=== PATIENT | female | born 1990 | race American Indian/Alaskan Native ===

== ENCOUNTER 2019-12-07 09:14 | Inpatient (IN) | payer OTHER ==
[2019-12-07] MEDS ORDERED: Tranexamic Acid 1,000 MG in Sodium Chloride 0.9% 100 ML IV PRN (09:49)
[2019-12-07] MEDS ORDERED: Misoprostol 200 MCG Tab PO PRN (09:49)
[2019-12-07] MEDS ORDERED: Sodium Chloride 0.9% 10 ML SDV IV PRN (09:49)
[2019-12-07] MEDS ORDERED: Lidocaine 1% 50 ML MDV INJECT PRN (09:49)
[2019-12-07] MEDS ORDERED: Sodium Chloride 0.9% 10 ML Syringe FLUSH PRN (09:49)
[2019-12-07] MEDS ORDERED: Butorphanol 1 MG/ML SDV IVPUSH PRN (09:49)
[2019-12-07] MEDS ORDERED: Sodium Chloride 0.9% 2.5 ML Syringe FLUSH PRN (09:49)
[2019-12-07] MEDS ORDERED: Carboprost Tromethamine 250 MCG/1 ML Amp IM PRN (09:49)
[2019-12-07] MEDS ORDERED: Methylergonovine 0.2 MG/1 ML Amp IM PRN (09:49)
[2019-12-07] MEDS ORDERED: Nalbuphine 10 MG/1 ML Vial IVPUSH PRN (09:49)
[2019-12-07] MEDS ORDERED: Water For Irrigation,Sterile 1,000 ML Container IRR PRN (09:49)
[2019-12-07] MEDS ORDERED: Oxytocin/0.9 % Sodium Chloride 30 UNIT/500 ML BAG IV SCH (10:00)
--- NOTE | 2019-12-07 10:06 | PCM.LDHP ---
L&D History of Present Illness - General Date of Service: 12/07/19 Admit Problem/Dx: Admission Diagnosis/Problem Admission Diagnosis/Problem 12/07/19 09:52 @ 40 weeks presenting to L&D with complaints of contractions starting 0300 and getting progressively worse at 0500. Reports increased mucus-like discharge and pelvic pain. Valentin approximately every 5-7 minutes. SVE per nurse report: 5cm/90%/-1, soft/stretchy, midposition. Vertex presentation confirmed by leopolds and vaginal exam. GBS negative, Rubella immune, O+. Source of Information: Patient History Limitations: Reports: No Limitations - Related Data Allergies/Adverse Reactions: Allergies Allergy/AdvReac Type Severity Reaction Status Date / Time No Known Allergies Allergy Verified 09/15/17 03:24 Home Medications: Home Meds Vit #76/Iron,Carb/Fa [Pnv 29-1 Tablet] 1 each PO DAILY 09/18/17 [History] Past Medical History - Past Health History Medical/Surgical History: Denies Medical/Surgical History HEENT History: Reports: Other (See Below) Other HEENT History: needs glassess Cardiovascular History: Reports: None Respiratory History: Reports: None Gastrointestinal History: Reports: None Genitourinary History: Reports: None 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: - Past Surgical History Cardiovascular Surgical History: Reports: None Female Surgical History: Reports: None Social & Family History - Family History HEENT: Reports: Cataract Other HEENT Family History: grandfather OBGYN: Reports: Other Musculoskeletal Family History: grandparetns arthritis Hematologic: Reports: Anemia - Caffeine Use Caffeine Use: Reports: Coffee H&P Review of Systems - Review of Systems: Review Of Systems: See Below General: Reports: No Symptoms HEENT: Reports: No Symptoms Pulmonary: Reports: No Symptoms Cardiovascular: Reports: No Symptoms Gastrointestinal: Reports: No Symptoms Genitourinary: Reports: No Symptoms Musculoskeletal: Reports: No Symptoms Skin: Reports: No Symptoms Psychiatric: Reports: No Symptoms Neurological: Reports: No Symptoms Hematologic/Lymphatic: Reports: No Symptoms Immunologic: Reports: No Symptoms L&D Exam - Exam Exam: See Below - Vital Signs Weight: 154 lb - OB Specific Contraction Intensity: Moderate Movement: Active Heart Tones: Present Heart Rate (FHR) Variability: Moderate (6-25 bmp) Presentation: Vertex - Monroe Score Monroe Score Cervix Position: Midposition Monroe Score Consistency: Soft Monroe Score Effacement: >80% Monroe Score Dilation: > 5 cm Monroe Score 's Station: -1 ,0 Monroe Score Total: 11 - Exam General: Alert, Oriented, Cooperative Rectal Exam: Deferred Genitourinary: Deferred Psychiatric: Alert, Normal Affect, Normal Mood - Problem List (1) Supervision of normal IUP (intrauterine ) in multigravida SNOMED Code(s): 443743288, 678959314, 990598083 ICD Code: Z34.80 - ENCOUNTER FOR SUPRVSN OF NORMAL , UNSP TRIMESTER Status: Acute Priority: High Current Visit: Yes Qualifiers: Trimester: third trimester Qualified Code(s): Z34.83 - Encounter for supervision of other normal , third trimester Problem List Initiated/Reviewed/Updated: Yes Assessment/Plan Comment:: Admit A: @ 40 weeks presenting to L&D with complaints of contractions starting 0300 and getting progressively worse at 0500. Reports increased mucus-like discharge and pelvic pain. Valentin approximately every 5-7 minutes. SVE per nurse report: 5cm/90%/-1, soft/stretchy, midposition. Vertex presentation confirmed by leopolds and vaginal exam. GBS negative, Rubella immune, O+. P: Anticipate ; epidural PRN; Dr. Nunez updated.
[2019-12-07] MEDS: Lactated Ringers 1,000 ML IV SCH ×2 (12:15→12:49)
[2019-12-07] MEDS ORDERED: Ropivacaine HCl/PF 100 ML ONE (12:16)
[2019-12-07] MEDS ORDERED: fentaNYL 100 MCG/2 ML SDV ONE (12:16)
--- NOTE | 2019-12-07 12:41 | PCM.PREANE ---
Preanesthetic Assessment - Anesthesia/Transfusion/Family Hx Anesthesia History: Prior Anesthesia Without Reaction Family History of Anesthesia Reaction: No Transfusion History: No Prior Transfusion(s) - Physical Assessment NPO Status Date: 12/07/19 NPO Status Time: 07:00 Height: 1.52 m Weight: 69.853 kg ASA Class: 2 - Lab Values: Laboratory Last Values WBC 14.07 K/uL (4.0-11.0) H 12/07/19 10:10 RBC 4.36 M/uL (4.30-5.90) 12/07/19 10:10 Hgb 13.8 g/dL (12.0-16.0) 12/07/19 10:10 Hct 41.4 % (36.0-46.0) 12/07/19 10:10 MCV 95.0 fL (80.0-98.0) 12/07/19 10:10 MCH 31.7 pg (27.0-32.0) 12/07/19 10:10 MCHC 33.3 g/dL (31.0-37.0) 12/07/19 10:10 RDW Std Deviation 47.0 fl (28.0-62.0) 12/07/19 10:10 RDW Coeff of Sandra 14 % (11.0-15.0) 12/07/19 10:10 Plt Count 317 K/uL (150-400) 12/07/19 10:10 MPV 10.00 fL (7.40-12.00) 12/07/19 10:10 Nucleated RBC % 0.0 /100WBC 12/07/19 10:10 Nucleated RBCs # 0 K/uL 12/07/19 10:10 SARS-CoV-2 RNA (LILLIE) NEGATIVE (NEGATIVE) 12/07/19 10:10 Blood Type O POSITIVE 12/07/19 10:10 Antibody Screen NEGATIVE 12/07/19 10:10 - Allergies Allergies/Adverse Reactions: Allergies Allergy/AdvReac Type Severity Reaction Status Date / Time No Known Allergies Allergy Verified 09/15/17 03:24 - Acknowledgements Anesthesia Type Planned: Epidural Pt an Appropriate Candidate for the Planned Anesthesia: Yes Alternatives and Risks of Anesthesia Discussed w Pt/Guardian: Yes Pt/Guardian Understands and Agrees with Anesthesia Plan: Yes PreAnesthesia Questionnaire - Past Health History Medical/Surgical History: Denies Medical/Surgical History HEENT History: Reports: Other (See Below) Other HEENT History: needs glassess Cardiovascular History: Reports: None Respiratory History: Reports: None Gastrointestinal History: Reports: None Genitourinary History: Reports: None [employer]LL[employer] 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: - Past Surgical History Cardiovascular Surgical History: Reports: None Female Surgical History: Reports: None - SUBSTANCE USE Tobacco Use Status *Q: Never Tobacco User Second Hand Smoke Exposure: No - HOME MEDS Home Medications: Home Meds Vit #76/Iron,Carb/Fa [Pnv 29-1 Tablet] 1 each PO DAILY 09/18/17 [History] - CURRENT (IN HOUSE) MEDS Current Meds: Current Medications Butorphanol Tartrate (Stadol) 1 mg IVPUSH Q1H PRN PRN Reason: Pain Carboprost Tromethamine (Hemabate Ds) 250 mcg IM ASDIRECTED PRN PRN Reason: Post Hemorrhage Oxytocin/Sodium Chloride (Oxytocin 30 Unit/500 Ml-Ns) 30 unit in 500 mls @ 500 mls/hr IV TITRATE [facility] Tranexamic Acid 1,000 mg/ (Sodium Chloride) 110 mls @ 660 mls/hr IV ONETIME PRN PRN Reason: Bleeding Lactated Ringer's (Ringers, Lactated) 1,000 mls @ 150 mls/hr IV ASDIRECTED [facility] Influenza Virus Vaccine (Pharmacy To Dose - Influenza Vaccine) 1 each IM ONETIME ONE Stop: 12/08/19 11:45 Influenza Virus Vaccine (Fluzone Quad [id number] Syringe) 60 mcg IM .ONCE ONE Stop: 12/09/19 17:01 Lidocaine HCl (Xylocaine 1%) 50 ml INJECT ONETIME PRN PRN Reason: Laceration repair Methylergonovine Maleate (Methergine) 0.2 mg IM ASDIRECTED PRN PRN Reason: Post Hemorrhage Misoprostol (Cytotec) 200 mcg PO ONETIME PRN PRN Reason: Post Hemorrhage Nalbuphine HCl (Nubain) 10 mg IVPUSH Q1H PRN PRN Reason: Pain (severe 7-10) Sodium Chloride (Saline Flush) 10 ml FLUSH ASDIRECTED PRN PRN Reason: Keep Vein Open Sodium Chloride (Saline Flush) 2.5 ml FLUSH ASDIRECTED PRN PRN Reason: Keep Vein Open Sodium Chloride (Normal Saline) 10 ml IV ASDIRECTED PRN PRN Reason: IV Use Sterile Water (Sterile Water For Irrigation) 1,000 ml IRR ASDIRECTED PRN PRN Reason: delivery Discontinued Medications Fentanyl (Sublimaze) Confirm Administered Dose 100 mcg .ROUTE .Pops-MED ONE Stop: 12/07/19 12:17 Ropivacaine (Naropin 0.2%) Confirm Administered Dose 100 mls @ as directed .ROUTE .[employer] ONE Stop: 12/07/19 12:17
--- NOTE | 2019-12-07 12:44 | PCM.PRNOTE ---
- Free Text/Narrative Note: Anes Note Patient requests epidural for L&D. Sitting position level L3-L4 midline approach. Sterle technique. Chloraprep scrub to lumbar area. Sterile fenestrated drape applied. Epidural space easily achieved single attempt with ease using CHRISTEL technique. CHRISTEL at 3 cm. Cath threaded 5 cm with ease. Cath secured at skin at 9 cm using sterile clear adhesive dressing. Test 1233 3 cc 1.5% lido with epi negaive. 1236 LOad 10 cc 0.2% ropiv with 1 mcg cc fentanyl in slow divided doses. 1240 Pump started with 90 cc same solution. Rate is 8 cc hr with 6 cc q 20 min prn bolus. Renetta well. Time with patient [id number] Reno Nur CRNA
--- NOTE | 2019-12-07 17:25 | PCM.DEL ---
L & D Note - General Info Date of Service: 12/07/19 Mother's Due Date: 12/07/19 - Delivery Note Labor: Spontaneous Delivery Outcome: Livebirth Infant Delivery Method: Spontaneous Vaginal Delivery-Single Presentation: Vertex Nuchal Cord: None Anesthesia Type: Epidural Episiotomy Type: None Laceration: None Placenta: Intact, Spontaneous Cord: 3 Vessels Estimated Blood Loss: 150 Score 1 min: 8 Score 5 min: 9 Second Stage Interventions: Reports: Second Nurse Assessed Progress of Descent, Second Nurse Reviewed Contraction Pattern, Second Nurse Reviewed Heart Tones, Encouragement Given, Pushing Effectively, Pushing, Pulls Own Legs Back Delivery Comments (Free Text/Narrative):: viable female; epidural for pain relief; head delivered with good pushing; shoulders and body followed easily after with mom in Jayden position; baby to mom's abdomen [id number] for assessment; APGARs 8/9; cord doubly clamped, cut by FOB after cessation of pulsing; placenta delivered grossly intact, triana, 3VC; EBL: 150 mL; perineum intact; pitocin to IVF; mom and baby left in stable condition with nurse at bedside for assessment; baby weight: 7 lb 15 oz (3600 grams) - General Info Date of Service: 12/07/19 Admission Dx/Problem (Free Text): Admission Diagnosis/Problem Admission Diagnosis/Problem 12/07/19 09:52 @ 40 weeks presenting to L&D with complaints of contractions starting 0300 and getting progressively worse at 0500. Reports increased mucus-like discharge and pelvic pain. Valentin approximately every 5-7 minutes. SVE per nurse r eport: 5cm/90%/-1, soft/stretchy, midposition. Vertex presentation confirmed by leopolds and vaginal exam. GBS negative, Rubella immune, O+. Functional Status: Reports: Pain Controlled - Review of Systems General: Reports: No Symptoms HEENT: Reports: No Symptoms Pulmonary: Reports: No Symptoms Cardiovascular: Reports: No Symptoms Gastrointestinal: Reports: No Symptoms Genitourinary: Reports: No Symptoms Musculoskeletal: Reports: No Symptoms Skin: Reports: No Symptoms Neurological: Reports: No Symptoms Psychiatric: Reports: No Symptoms - Patient Data Weight - Most Recent: 154 lb Lab Results Last 24 Hours: Laboratory Results - last 24 hr 12/07/19 12/07/19 12/07/19 Range/Units 10:10 10:10 10:10 WBC 14.07 H (4.0-11.0) K/uL RBC 4.36 (4.30-5.90) M/uL Hgb 13.8 (12.0-16.0) g/dL Hct 41.4 (36.0-46.0) % MCV 95.0 (80.0-98.0) fL MCH 31.7 (27.0-32.0) pg MCHC 33.3 (31.0-37.0) g/dL RDW Std Deviation 47.0 (28.0-62.0) fl RDW Coeff of Sandra 14 (11.0-15.0) % Plt Count 317 (150-400) K/uL MPV 10.00 (7.40-12.00) fL Nucleated RBC % 0.0 /100WBC Nucleated RBCs # 0 K/uL SARS-CoV-2 RNA (LILLIE) NEGATIVE (NEGATIVE) Blood Type O POSITIVE Antibody Screen NEGATIVE Med Orders - Current: Current Medications Butorphanol Tartrate (Stadol) 1 mg IVPUSH Q1H PRN PRN Reason: Pain Carboprost Tromethamine (Hemabate Ds) 250 mcg IM ASDIRECTED PRN PRN Reason: Post Hemorrhage Oxytocin/Sodium Chloride (Oxytocin 30 Unit/500 Ml-Ns) 30 unit in 500 mls @ 500 mls/hr IV TITRATE [facility] Tranexamic Acid 1,000 mg/ (Sodium Chloride) 110 mls @ 660 mls/hr IV ONETIME PRN PRN Reason: Bleeding Lactated Ringer's (Ringers, Lactated) 1,000 mls @ 150 mls/hr IV ASDIRECTED [facility] Last Admin: 12/07/19 12:49 Dose: 1,000 mls/hr Documented by: Influenza Virus Vaccine (Pharmacy To Dose - Influenza Vaccine) 1 each IM ONETIME ONE Stop: 12/08/19 11:45 Influenza Virus Vaccine (Fluzone Quad [id number] Syringe) 60 mcg IM .ONCE ONE Stop: 12/09/19 17:01 Lidocaine HCl (Xylocaine 1%) 50 ml INJECT ONETIME PRN PRN Reason: Laceration repair Methylergonovine Maleate (Methergine) 0.2 mg IM ASDIRECTED PRN PRN Reason: Post Hemorrhage Misoprostol (Cytotec) 200 mcg PO ONETIME PRN PRN Reason: Post Hemorrhage Nalbuphine HCl (Nubain) 10 mg IVPUSH Q1H PRN PRN Reason: Pain (severe 7-10) Sodium Chloride (Saline Flush) 10 ml FLUSH ASDIRECTED PRN PRN Reason: Keep Vein Open Sodium Chloride (Saline Flush) 2.5 ml FLUSH ASDIRECTED PRN PRN Reason: Keep Vein Open Sodium Chloride (Normal Saline) 10 ml IV ASDIRECTED PRN PRN Reason: IV Use Sterile Water (Sterile Water For Irrigation) 1,000 ml IRR ASDIRECTED PRN PRN Reason: delivery Discontinued Medications Fentanyl (Sublimaze) Confirm Administered Dose 100 mcg .ROUTE .STK-MED ONE Stop: 12/07/19 12:17 Ropivacaine (Naropin 0.2%) Confirm Administered Dose 100 mls @ as directed .ROUTE .[employer]-MED ONE Stop: 12/07/19 12:17 - Exam General: Alert, Oriented, Cooperative, No Acute Distress Lungs: Normal Respiratory Effort GI/Abdominal Exam: Soft, Non-Tender (Female) Exam: Normal External Exam Back Exam: Normal Inspection Extremities: Normal Inspection, Normal Capillary Refill Skin: Warm, Dry, Intact Neurological: No New Focal Deficit, Normal Speech, Normal Tone Psy/Mental Status: Alert, Normal Affect, Normal Mood - Problem List & Annotations (1) Supervision of normal IUP (intrauterine ) in multigravida SNOMED Code(s): 028848364, 627985266, 150512230 Code(s): Z34.80 - ENCOUNTER FOR SUPRVSN OF NORMAL , UNSP TRIMESTER Status: Acute Priority: High Current Visit: Yes Qualifiers: Trimester: third trimester Qualified Code(s): Z34.83 - Encounter for supervision of other normal , third trimester (2) (spontaneous vaginal delivery) SNOMED Code(s): 915723761 Code(s): O80 - ENCOUNTER FOR FULL-TERM UNCOMPLICATED DELIVERY Status: Acute Priority: High Current Visit: Yes - Problem List Review Problem List Initiated/Reviewed/Updated: Yes - My Orders Last 24 Hours: My Active Orders 12/07/19 09:49 Heart Tones [RC] CONTINUOUS Non Stress Test [RC] PER UNIT ROUTINE May Shower [RC] ASDIRECTED Notify Provider [RC] PRN Up ad Francesca [RC] ASDIRECTED Vaginal Exam [RC] PRN Vital Signs [RC] PER UNIT ROUTINE Butorphanol [Stadol] 1 mg IVPUSH Q1H PRN Carboprost Tromethamine [Hemabate DS] 250 mcg IM ASDIRECTED PRN Lidocaine 1% [Xylocaine 1%] 50 ml INJECT ONETIME PRN Methylergonovine [Methergine] 0.2 mg IM ASDIRECTED PRN Nalbuphine [Nubain] 10 mg IVPUSH Q1H PRN Sodium Chloride 0.9% [Normal Saline] 10 ml IV ASDIRECTED PRN Sodium Chloride 0.9% [Saline Flush] 10 ml FLUSH ASDIRECTED PRN Sodium Chloride 0.9% [Saline Flush] 2.5 ml FLUSH ASDIRECTED PRN Tranexamic Acid [Cyklokapron] 1,000 mg Sodium Chloride 0.9% [Normal Saline] 100 ml IV ONETIME Water For Irrigation,Sterile [Sterile Water for Irrigation] 1,000 ml IRR ASDIRECTED PRN miSOPROStoL [Cytotec] 200 mcg PO ONETIME PRN Scalp Electrode [WOMSER] Per Unit Routine Peripheral IV Insertion Adult [OM.PC] Routine Resuscitation Status Routine 12/07/19 10:00 Lactated Ringers [Ringers, Lactated] 1,000 ml IV ASDIRECTED Oxytocin/0.9 % Sodium Chloride [Oxytocin 30 Unit/500 ML-NS] 30 unit in 500 ml IV TITRATE 12/07/19 10:10 RPR (SYPHILIS SERO) W/ RFLX [REF] Routine 12/07/19 11:46 Influenza Vaccine Charge [RC] .DISCHARGE 12/08/19 11:44 Pharmacy to Dose - InFluenza V [Pharmacy to Dose - InFluenza Vaccine] 1 each IM ONETIME ONE - Plan Plan:: Admit A: @ 40 weeks presenting to L&D with complaints of contractions starting 0300 and getting progressively worse at 0500. Reports increased mucus-like discharge and pelvic pain. Valentin approximately every 5-7 minutes. SVE per nurse report: 5cm/90%/-1, soft/stretchy, midposition. Vertex presentation confirmed by leopolds and vaginal exam. GBS negative, Rubella immune, O+. P: Anticipate ; epidural PRN; Dr. Nunez updated. Delivery A: viable female; APGARs 8/9; placenta delivered grossly intact, triana, 3VC; EBL: 150 mL; perineum intact; pitocin to IVF; mom and baby left in stable condition with nurse at bedside for assessment; baby weight: 7 lb 15 oz (3600 grams) P: Routine plan of care; Dr. Nunez updated
[2019-12-07] MEDS ORDERED: Bisacodyl 10 MG Supp RECTAL PRN (17:26)
[2019-12-07] MEDS ORDERED: oxyCODONE 5 MG Tab PO PRN (17:26)
[2019-12-07] MEDS ORDERED: Ibuprofen 400 MG Tab PO PRN (17:26)
[2019-12-07] MEDS ORDERED: Benzocaine/Menthol 20%-0.5% Spray 78 GM Cannister TOP PRN (17:26)
[2019-12-07] MEDS ORDERED: Lanolin 100% Cream 7 GM Tube TOP PRN (17:26)
[2019-12-07] MEDS ORDERED: Witch Hazel Medicated Pads 40/Jar TOP PRN (17:26)
[2019-12-07] MEDS ORDERED: Ibuprofen 800 MG Tab PO PRN (17:26)
[2019-12-07] MEDS ORDERED: Acetaminophen 500 MG Tab PO PRN ×2 (17:26)
--- NOTE | 2019-12-08 08:05 | PCM.DCSUM1 ---
Discharge Summary - Hospital Course Free Text/Narrative:: Discharge home with baby; follow up in the clinic in six weeks for routine visit; sooner, if needed. Diagnosis: Stroke: No Modified Edgemont Scale: No Symptoms at All Modified Arnoldo Scale Score: 0 - Discharge Data Discharge Date: 12/08/19 Discharge Disposition: Home, Self-Care 01 Condition: Good - Referral to Home Health Primary Care Physician: PCP None - Discharge Diagnosis/Problem(s) (1) Supervision of normal IUP (intrauterine ) in multigravida SNOMED Code(s): 937440809, 206783238, 530524477 ICD Code: Z34.80 - ENCOUNTER FOR SUPRVSN OF NORMAL , UNSP TRIMESTER Status: Acute Priority: High Current Visit: Yes Qualifiers: Trimester: third trimester Qualified Code(s): Z34.83 - Encounter for supervision of other normal , third trimester (2) (spontaneous vaginal delivery) SNOMED Code(s): 178964509 ICD Code: O80 - ENCOUNTER FOR FULL-TERM UNCOMPLICATED DELIVERY Status: Acute Priority: High Current Visit: Yes - Patient Instructions Diet: Usual Diet as Tolerated, Regular Diet as Tolerated, Drink 8-10+ Glasses/Day Activity: As Tolerated, No Strenuous Activities, Rest and Relax Today Driving: May Drive Today Showering/Bathing: May Shower Notify Provider of: Fever, Increased Pain, Swelling and Redness, Drainage, Nausea and/or Vomiting - Discharge Plan *PRESCRIPTION DRUG MONITORING PROGRAM REVIEWED*: Not Applicable *COPY OF PRESCRIPTION DRUG MONITORING REPORT IN PATIENT AVELINO: Not Applicable Prescriptions/Med Rec: Ibuprofen [Motrin] 800 mg PO Q6H PRN #90 tablet PRN Reason: Pain Home Medications: Home Meds Vit #76/Iron,Carb/Fa [Pnv 29-1 Tablet] 1 each PO DAILY 09/18/17 [History] Ibuprofen [Motrin] 800 mg PO Q6H PRN #90 tablet 12/08/19 [Rx] Oxygen Therapy Mode: Room Air Referrals: [facility] [Outside] Emily Forrester, KATERYNAM, BRANCH OR [employer]IEF [employer]IAN [Mid-] - 01/18/20 2:30 pm - Discharge Summary/Plan Comment DC Time >30 min.: Yes - General Info Date of Service: 12/08/19 Admission Dx/Problem (Free Text: Admission Diagnosis/Problem Admission Diagnosis/Problem 12/07/19 09:52 @ 40 weeks presenting to L&D with complaints of contractions starting 0300 and getting progressively worse at 0500. Reports increased mucus-like discharge and pelvic pain. Valentin approximately every 5-7 minutes. SVE per nurse report: 5cm/90%/-1, soft/stretchy, midposition. Vertex presentation confirmed by leopolds and vaginal exam. GBS negative, Rubella immune, O+. Functional Status: Reports: Pain Controlled, Tolerating Diet, Ambulating, Urinating - Review of Systems General: Reports: No Symptoms HEENT: Reports: No Symptoms Pulmonary: Reports: No Symptoms Cardiovascular: Reports: No Symptoms Gastrointestinal: Reports: No Symptoms Genitourinary: Reports: No Symptoms Musculoskeletal: Reports: No Symptoms Skin: Reports: No Symptoms Neurological: Reports: No Symptoms Psychiatric: Reports: No Symptoms - Patient Data Vitals - Most Recent: Last Vital Signs Temp 96.9 F 12/08/19 04:30 Pulse 90 12/08/19 04:30 Resp 17 12/08/19 04:30 BP 133/85 12/08/19 04:30 Pulse Ox 100 12/08/19 04:30 Weight - Most Recent: 154 lb Lab Results - Last 24 hrs: Laboratory Results - last 24 hr 12/07/19 12/07/19 12/07/19 Range/Units 10:10 10:10 10:10 WBC 14.07 H (4.0-11.0) K/uL RBC 4.36 (4.30-5.90) M/uL Hgb 13.8 (12.0-16.0) g/dL Hct 41.4 (36.0-46.0) % MCV 95.0 (80.0-98.0) fL MCH 31.7 (27.0-32.0) pg MCHC 33.3 (31.0-37.0) g/dL RDW Std Deviation 47.0 (28.0-62.0) fl RDW Coeff of Sandra 14 (11.0-15.0) % Plt Count 317 (150-400) K/uL MPV 10.00 (7.40-12.00) fL Nucleated RBC % 0.0 /100WBC Nucleated RBCs # 0 K/uL SARS-CoV-2 RNA (LILLIE) NEGATIVE (NEGATIVE) Blood Type O POSITIVE Antibody Screen NEGATIVE 12/08/19 Range/Units 05:31 WBC (4.0-11.0) K/uL RBC (4.30-5.90) M/uL Hgb 12.8 (12.0-16.0) g/dL Hct 39.1 (36.0-46.0) % MCV (80.0-98.0) fL MCH (27.0-32.0) pg MCHC (31.0-37.0) g/dL RDW Std Deviation (28.0-62.0) fl RDW Coeff of Sandra (11.0-15.0) % Plt Count (150-400) K/uL MPV (7.40-12.00) fL Nucleated RBC % /100WBC Nucleated RBCs # K/uL SARS-CoV-2 RNA (LILLIE) (NEGATIVE) Blood Type Antibody Screen Med Orders - Current: Current Medications Acetaminophen (Tylenol Extra Strength) 500 mg PO Q4H PRN PRN Reason: Pain Acetaminophen (Tylenol Extra Strength) 1,000 mg PO Q4H PRN PRN Reason: Pain Benzocaine/Menthol (Dermoplast Pain Relief 20%-0.5% [place]) 78 gm TOP ASDIRECTED PRN PRN Reason: Perineal Comfort Measure Bisacodyl (Dulcolax) 10 mg RECTAL ONETIME PRN PRN Reason: Constipation Docusate Sodium (Colace) 100 mg PO BID PRN PRN Reason: Constipation Emollient Ointment (Lansinoh Hpa) 0 gm TOP ASDIRECTED PRN PRN Reason: Sore Nipples Ibuprofen (Motrin) 400 mg PO Q4H PRN PRN Reason: Pain Ibuprofen (Motrin) 800 mg PO Q6H PRN PRN Reason: Pain Oxycodone HCl (Oxycodone) 5 mg PO Q2H PRN PRN Reason: Pain Witch Beulah (Tucks) 1 pad TOP ASDIRECTED PRN PRN Reason: comfort care Discontinued Medications Butorphanol Tartrate (Stadol) 1 mg IVPUSH Q1H PRN PRN Reason: Pain Carboprost Tromethamine (Hemabate Ds) 250 mcg IM ASDIRECTED PRN PRN Reason: Post Hemorrhage Fentanyl (Sublimaze) Confirm Administered Dose 100 mcg .ROUTE .STK-MED ONE Stop: 12/07/19 12:17 Oxytocin/Sodium Chloride (Oxytocin 30 Unit/500 Ml-Ns) 30 unit in 500 mls @ 500 mls/hr IV TITRATE [facility] Last Admin: 12/07/19 17:11 Dose: 500 mls/hr Documented by: Tranexamic Acid 1,000 mg/ (Sodium Chloride) 110 mls @ 660 mls/hr IV ONETIME PRN PRN Reason: Bleeding Lactated Ringer's (Ringers, Lactated) 1,000 mls @ 150 mls/hr IV ASDIRECTED [facility] Last Admin: 12/07/19 12:49 Dose: 1,000 mls/hr Documented by: Ropivacaine (Naropin 0.2%) Confirm Administered Dose 100 mls @ as directed .ROUTE .[facility] ONE Stop: 12/07/19 12:17 Influenza Virus Vaccine (Pharmacy To Dose - Influenza Vaccine) 1 each IM ONETIME ONE Stop: 12/08/19 11:45 Influenza Virus Vaccine (Fluzone Quad Syringe) 60 mcg IM .ONCE ONE Stop: 12/09/19 17:01 Lidocaine HCl (Xylocaine 1%) 50 ml INJECT ONETIME PRN PRN Reason: Laceration repair Methylergonovine Maleate (Methergine) 0.2 mg IM ASDIRECTED PRN PRN Reason: Post Hemorrhage Misoprostol (Cytotec) 200 mcg PO ONETIME PRN PRN Reason: Post Hemorrhage Nalbuphine HCl (Nubain) 10 mg IVPUSH Q1H PRN PRN Reason: Pain (severe 7-10) Sodium Chloride (Saline Flush) 10 ml FLUSH ASDIRECTED PRN PRN Reason: Keep Vein Open Sodium Chloride (Saline Flush) 2.5 ml FLUSH ASDIRECTED PRN PRN Reason: Keep Vein Open Sodium Chloride (Normal Saline) 10 ml IV ASDIRECTED PRN PRN Reason: IV Use Sterile Water (Sterile Water For Irrigation) 1,000 ml IRR ASDIRECTED PRN PRN Reason: delivery - Exam General: Reports: Alert, Oriented, Cooperative, No Acute Distress Lungs: Reports: Normal Respiratory Effort Cardiovascular: Reports: Regular Rate, Regular Rhythm GI/Abdominal Exam: Soft, Non-Tender (Female) Exam: Deferred Rectal (Female) Exam: Deferred Back Exam: Reports: Normal Inspection, Full Range of Motion Extremities: Normal Inspection, Normal Range of Motion, Non-Tender, Normal Ca pillary Refill Skin: Reports: Warm, Dry, Intact Neurological: Reports: No New Focal Deficit, Normal Gait, Normal Speech, Normal Tone, Sensation Intact Psy/Mental Status: Reports: Alert, Normal Affect, Normal Mood
[2019-12-08] MEDS: Docusate Sodium 100 MG Cap PO PRN (09:45)
--- NOTE | 2019-12-08 10:07 | PCM48HPAN ---
Post Anesthesia Note - EVALUATION WITHIN 48HRS OF ANESTHETIC Vital Signs in Normal Range: Yes Patient Participated in Evaluation: Yes Respiratory Function Stable: Yes Airway Patent: Yes Cardiovascular Function Stable: Yes Hydration Status Stable: Yes Pain Control Satisfactory: Yes (Reports pain of 3/10 at rest with adequate pain control. 5/10 with movement) Nausea and Vomiting Control Satisfactory: Yes (Denies N/V) Mental Status Recovered: Yes Vital Signs: Last Vital Signs Temp 36.1 C 12/08/19 04:30 Pulse 90 12/08/19 04:30 Resp 17 12/08/19 04:30 BP 133/85 12/08/19 04:30 Pulse Ox 100 12/08/19 04:30 - COMMENTS/OBSERVATIONS Free Text/Narrative:: Ambulating without difficulty, reports full return of strength and sensation to BLE
[2019-12-09] MEDS: Docusate Sodium 100 MG Cap PO PRN (09:17)
--- NOTE | 2019-12-09 11:40 | PCM.DCSUM1 ---
Discharge Summary - Hospital Course Free Text/Narrative:: Anabell is a 29 yo PPD2 S/P uncomplicated to term NBF. O pos, RI, GBS neg. Hemodynamically stable, afebrile. Patient is exclusively well, resting comfortably in bed with in bassinet at beside. Patient reports she is eating, voiding, ambulating independently and without difficulty. Patient denies any problems or concerns at this time except mild-moderate intermittent uterine cramping relieved with Tylenol and Ibuprofen. Patient reports moderate rubra lochia with multiple very small clots. Patient verbalizes her readiness to be discharged home. Diagnosis: Stroke: No Modified Bacon Scale: No Symptoms at All Modified Bacon Scale Score: 0 - Discharge Data Discharge Date: 12/09/19 Discharge Disposition: Home, Self-Care 01 Condition: Good - Referral to Home Health Primary Care Physician: PCP None - Discharge Diagnosis/Problem(s) (1) (spontaneous vaginal delivery) SNOMED Code(s): 116682435 ICD Code: O80 - ENCOUNTER FOR FULL-TERM UNCOMPLICATED DELIVERY Status: Acute Priority: High Current Visit: Yes (2) Lactating mother SNOMED Code(s): 262633800, 735245013 ICD Code: Z39.1 - ENCOUNTER FOR CARE AND EXAMINATION OF LACTATING MOTHER Status: Acute Priority: High Current Visit: Yes - Patient Instructions Diet: Usual Diet as Tolerated, Regular Diet as Tolerated, Drink 8-10+ Glasses/Day Activity: As Tolerated, No Strenuous Activities, Rest and Relax Today Driving: May Drive Today Driving, Other: Sitz bathes for perineal comfort Showering/Bathing: May Shower Notify Provider of: Fever, Increased Pain, Swelling and Redness, Drainage, Nausea and/or Vomiting - Discharge Plan *PRESCRIPTION DRUG MONITORING PROGRAM REVIEWED*: Not Applicable *COPY OF PRESCRIPTION DRUG MONITORING REPORT IN PATIENT AVELINO: Not Applicable Prescriptions/Med Rec: Ibuprofen [Motrin] 800 mg PO Q6H PRN #90 tablet PRN Reason: Pain Home Medications: Home Meds Vit #76/Iron,Carb/Fa [Pnv 29-1 Tablet] 1 each PO DAILY 09/18/17 [History] Ibuprofen [Motrin] 800 mg PO Q6H PRN #90 tablet 12/08/19 [Rx] Oxygen Therapy Mode: Room Air Referrals: [facility] [Outside] Usama,Emily R, CNM, BUDGET ASSISTANT [Mid-] - 01/18/20 2:30 pm - Discharge Summary/Plan Comment DC Time >30 min.: No - General Info Date of Service: 12/09/19 Admission Dx/Problem (Free Text: Admission Diagnosis/Problem Admission Diagnosis/Problem 12/07/19 09:52 @ 40 weeks presenting to L&D with complaints of contractions starting 0300 and getting progressively worse at 0500. Reports increased mucus-like discharge and pelvic pain. Valentin approximately every 5-7 minutes. SVE per nurse report: 5cm/90%/-1, soft/stretchy, midposition. Vertex presentation confirmed by leopolds and vaginal exam. GBS negative, Rubella immune, O+. Functional Status: Reports: Pain Controlled - Review of Systems General: Reports: No Symptoms HEENT: Reports: No Symptoms Pulmonary: Reports: No Symptoms Cardiovascular: Reports: No Symptoms Gastrointestinal: Reports: No Symptoms Genitourinary: Reports: No Symptoms Musculoskeletal: Reports: No Symptoms Skin: Reports: No Symptoms Neurological: Reports: No Symptoms Psychiatric: Reports: No Symptoms - Patient Data Vitals - Most Recent: Last Vital Signs Temp 96.8 F L 12/09/19 09:00 Pulse 73 12/09/19 09:00 Resp 16 12/09/19 09:00 BP 131/78 12/09/19 09:00 Pulse Ox 98 12/09/19 09:00 Weight - Most Recent: 154 lb Med Orders - Current: Current Medications Acetaminophen (Tylenol Extra Strength) 500 mg PO Q4H PRN PRN Reason: Pain Acetaminophen (Tylenol Extra Strength) 1,000 mg PO Q4H PRN PRN Reason: Pain Benzocaine/Menthol (Dermoplast Pain Relief 20%-0.5% [place]) 78 gm TOP ASDIRECTED PRN PRN Reason: Perineal Comfort Measure Bisacodyl (Dulcolax) 10 mg RECTAL ONETIME PRN PRN Reason: Constipation Docusate Sodium (Colace) 100 mg PO BID PRN PRN Reason: Constipation Last Admin: 12/09/19 09:17 Dose: 100 mg Documented by: Emollient Ointment (Lansinoh Hpa) 0 gm TOP ASDIRECTED PRN PRN Reason: Sore Nipples Ibuprofen (Motrin) 400 mg PO Q4H PRN PRN Reason: Pain Ibuprofen (Motrin) 800 mg PO Q6H PRN PRN Reason: Pain Oxycodone HCl (Oxycodone) 5 mg PO Q2H PRN PRN Reason: Pain Witch Beulah (Tucks) 1 pad TOP ASDIRECTED PRN PRN Reason: comfort care Discontinued Medications Butorphanol Tartrate (Stadol) 1 mg IVPUSH Q1H PRN PRN Reason: Pain Carboprost Tromethamine (Hemabate Ds) 250 mcg IM ASDIRECTED PRN PRN Reason: Post Hemorrhage Fentanyl (Sublimaze) Confirm Administered Dose [address] ONE Stop: 12/07/19 12:17 Oxytocin/Sodium Chloride (Oxytocin 30 Unit/500 Ml-Ns) 30 unit in 500 mls @ 500 mls/hr IV TITRATE [facility] Last Admin: 12/07/19 17:11 Dose: 500 mls/hr Documented by: Tranexamic Acid 1,000 mg/ (Sodium Chloride) 110 mls @ 660 mls/hr IV ONETIME PRN PRN Reason: Bleeding Lactated Ringer's (Ringers, Lactated) 1,000 mls @ 150 mls/hr IV ASDIRECTED [facility] Last Admin: 12/07/19 12:49 Dose: 1,000 mls/hr Documented by: Ropivacaine (Naropin 0.2%) Confirm Administered Dose 100 mls @ as directed .ROUTE .[facility] ONE Stop: 12/07/19 12:17 Influenza Virus Vaccine (Pharmacy To Dose - Influenza Vaccine) 1 each IM ONETIME ONE Stop: 12/08/19 11:45 Influenza Virus Vaccine (Fluzone Quad Syringe) 60 mcg IM .ONCE ONE Stop: 12/09/19 17:01 Lidocaine HCl (Xylocaine 1%) 50 ml INJECT ONETIME PRN PRN Reason: Laceration repair Methylergonovine Maleate (Methergine) 0.2 mg IM ASDIRECTED PRN PRN Reason: Post Hemorrhage Misoprostol (Cytotec) 200 mcg PO ONETIME PRN PRN Reason: Post Hemorrhage Nalbuphine HCl (Nubain) 10 mg IVPUSH Q1H PRN PRN Reason: Pain (severe 7-10) Sodium Chloride (Saline Flush) 10 ml FLUSH ASDIRECTED PRN PRN Reason: Keep Vein Open Sodium Chloride (Saline Flush) 2.5 ml FLUSH ASDIRECTED PRN PRN Reason: Keep Vein Open Sodium Chloride (Normal Saline) 10 ml IV ASDIRECTED PRN PRN Reason: IV Use Sterile Water (Sterile Water For Irrigation) 1,000 ml IRR ASDIRECTED PRN PRN Reason: delivery - Exam General: Reports: Alert, Oriented, Cooperative, No Acute Distress HEENT: Reports: Pupils Equal, Pupils Reactive, EOMI, Mucous Membr. Moist/[place] Neck: Reports: Supple Lungs: Reports: Clear to Auscultation, Normal Respiratory Effort Cardiovascular: Reports: Regular Rate, Regular Rhythm GI/Abdominal Exam: Normal Bowel Sounds, Soft, Non-Tender, No Organomegaly, No Distention (Female) Exam: Normal External Exam, Enlarged Uterus ( uterus, firm U+1), Vaginal Bleeding (Moderate rubra lochia) Rectal (Female) Exam: Normal Rectal Tone, Deferred Back Exam: Reports: Normal Inspection, Full Range of Motion Extremities: Normal Inspection, Normal Range of Motion, Non-Tender, No Pedal Edema, Normal Capillary Refill Skin: Reports: Warm, Dry, Intact Wound/Incisions: Reports: Healing Well Neurological: Reports: No New Focal Deficit Psy/Mental Status: Reports: Alert, Normal Affect, Normal Mood
[2019-12-09] MEDS ORDERED: FLU VACC QS2020-21(6MOS UP)/PF 60 MCG/0.5 ML SYRINGE IM ONE ×2 (16:00→17:00)
== END 2019-12-09 16:20 | disposition home or self-care (01) | DRG 807 ==
LOC: MW.OBCHECK 09:14 → MW.OB 09:20 → MW.OBCHECK 09:49 → OBSVTOIN 17:26 → MW.OB 20:23
PROVIDERS: ADMIT Obstetrics & Gynecology; ATTEND Obstetrics & Gynecology
PROC: 10E0XZZ Delivery of Products of Conception, External Approach (ICD-10-PCS; principal; 2019-12-07)
PROC: 10907ZC Drainage of Amniotic Fluid, Therapeutic from Products of Conception, Via Natural or Artificial Opening (ICD-10-PCS; 2019-12-07)
PROC: 3E0R3BZ Introduction of Anesthetic Agent into Spinal Canal, Percutaneous Approach (ICD-10-PCS; 2019-12-07)
PROC: 00HU33Z Insertion of Infusion Device into Spinal Canal, Percutaneous Approach (ICD-10-PCS; 2019-12-07)
DX: O80 Encounter for full-term uncomplicated delivery (principal); Z37.0 Single live birth; Z3A.40 40 weeks gestation of pregnancy; Z20.828 Contact with and (suspected) exposure to other viral communicable diseases
CPT/HCPCS: 01967; 36415; 51702; 59025; 59409; 85014; 85018; 85027; 86592; 86850; 86900; 86901; 90686; A9270-GY; G0008; J2590; J7120; U0002